=== PATIENT | male | born 1985 | race Hispanic/Latino ===

== ENCOUNTER 2017-12-11 10:24 | Emergency (ER) | payer OTHER, SELFPAY ==
--- NOTE | 2017-12-11 11:18 | RAD ---
FRONTAL RADIOGRAPH CHEST: Date: 12-11-17 Comparison: None. History: Chemical inhalation. FINDINGS: Lungs are clear. Heart and mediastinal contours are unremarkable. IMPRESSION: No acute findings. POS: [facility]
== END 2017-12-11 12:52 | disposition home or self-care (01) ==
LOC: ERS 10:24
DX: T54.3X1A Toxic effect of corrosive alkalis and alkali-like substances, accidental (unintentional), initial encounter (principal); E78.5 Hyperlipidemia, unspecified; F17.210 Nicotine dependence, cigarettes, uncomplicated
CPT/HCPCS: 71045; 94760

== ENCOUNTER 2021-09-01 15:39 | Outpatient (CLI) | payer OTHER | END 2021-09-01 15:40 | disposition home or self-care (01) | LOC: BICRAD 15:39 | PROVIDERS: ATTEND Family Medicine | DX: R05.9 Cough, unspecified (principal); R06.02 Shortness of breath | CPT/HCPCS: 71046 ==

== ENCOUNTER 2021-12-27 23:17 | Inpatient (IN) | payer SELFPAY ==
[2021-12-27 23:47] LABS: Bacteria/HPF None Seen HPF (None Seen); Bilirubin Negative (Negative); Blood, Urine 1+ (Negative); Clarity Clear (Clear); Glucose, Urine (Dipstick) Normal (Negative); Ketone, Urine Negative (Negative); Leukocyte Negative Leu/uL (Negative); Nitrite Negative (Negative); Protein, Urine (Dipstick) 30 mg/dL (Neg-Trace); RBC/HPF 0-3 HPF (0-3); Specific Gravity, Urine 1.012 (1.002-1.036); Squamous Epithelial None Seen HPF (0-3); Urobilinogen Normal mg/dL (Less than 2); WBC/HPF 0-3 HPF (0-3); pH, Urine 6.5 (5.0-9.0)
[2021-12-27 23:53] LABS: Hemoglobin 16.1 g/dL (14.0-18.0); Mean Corpuscular HGB CONC 32.8 g/dL (32.0-36.0); Mean Corpuscular Hemoglobin 30.3 pg (27.0-31.0); Mean Corpuscular Volume 92.4 fL (78.0-98.0); Mean Platelet Volume 8.1 fL (7.4-10.4); Platelet Count 351 thou/uL (130-400); RBC Distribution Width 11.2 % (11.5-14.5); Red Blood Cell (RBC) Count 5.33 mill/uL (4.70-6.10); White Blood Cell (WBC) Count 16.8 thou/uL (4.8-10.8)
[2021-12-27 23:55] LABS: Amphetamine Not Detected (NotDetected); Barbiturates Screen Not Detected (NotDetected); Benzodiazepine Screen Not Detected (NotDetected); Cocaine Metabolite Screen Not Detected (NotDetected); Methadone Not Detected (NotDetected); Methamphetamine Not Detected (NotDetected); Opiate Screen Not Detected (NotDetected); Oxycodone Screen Not Detected (NotDetected); Phencyclidine (PCP) Not Detected (NotDetected); THC/Cannabinoid Screen Not Detected (NotDetected); Tricyclic Screen Not Detected (NotDetected)
[2021-12-28] LABS: ALT (SGPT) 27 U/L (8-55); AST (SGOT) 18 U/L (5-34); Acetaminophen Less than 6.0 mcg/mL (10.0-30.0); Albumin 4.9 g/dL (3.5-5.0); Alcohol Less than 10 mg/dL (Less than 10); Alkaline Phosphatase 68 U/L (40-110); Anion Gap 26 mmol/L (10-20); BUN (Urea Nitrogen) 14 mg/dL (8.9-20.6); Bilirubin, Total 0.4 mg/dL (0.2-1.2); Calc. Creatinine Clearance 0 mL/min (70-130); Calcium 9.3 mg/dL (7.8-10.44); Carbon Dioxide 15 mmol/L (22-29); Chloride 104 mmol/L (98-107); Globulin 2.9 g/dL (2.4-3.5); Glucose 130 mg/dL (70-105); Lipase 33 U/L (8-78); Potassium 3.8 mmol/L (3.5-5.1); Protein, Total 7.8 g/dL (6.0-8.3); Salicylate Less than 8.0 mg/dL (15.0-30.0); Sodium 141 mmol/L (136-145)
[2021-12-28 00:11] LABS: Eosinophils 2 % (0-10); Lymphocytes 40 % (21-51); MDiff Complete? YES; Monocytes 9 % (0-10); Neutrophil 45 % (42-75); Reactive Lymphocytes 3 % (0-10)
[2021-12-28] MEDS ORDERED: Dexamethasone 10 MG/ML VIAL ONE (00:42)
[2021-12-28] MEDS ORDERED: levETIRAcetam in NS 1,500 MG in Premix Bag 1 BAG IVPB SCH ×2 (00:45→09:00)
[2021-12-28] MEDS ORDERED: Ondansetron PF 4 MG/2 ML Vial ONE (01:22)
[2021-12-28] MEDS ORDERED: Ondansetron ODT 4 MG TAB SL PRN (01:45)
[2021-12-28] MEDS ORDERED: Ondansetron PF 4 MG/2 ML Vial IVP PRN (01:45)
[2021-12-28] MEDS ORDERED: Acetaminophen 325 MG TAB PO PRN (01:45)
[2021-12-28 02:13] LABS: SARS-CoV-2 NAA Rapid Test Not Detected (NotDetected)
[2021-12-28] MEDS ORDERED: Lorazepam 2 MG/ML VIAL SLOW IVP PRN (02:18)
[2021-12-28] MEDS ORDERED: Acetaminophen 650 MG Suppository PR PRN (02:18)
[2021-12-28] MEDS: Sodium Chloride 0.9% 1,000 ML IV SCH ×2 (03:15→13:04)
[2021-12-28 03:59] VITALS: BMI 25.5
[2021-12-28 04:17] LABS: Hemoglobin 14.9 g/dL (14.0-18.0); Mean Corpuscular HGB CONC 34.3 g/dL (32.0-36.0); Mean Corpuscular Hemoglobin 31.1 pg (27.0-31.0); Mean Corpuscular Volume 90.6 fL (78.0-98.0); Mean Platelet Volume 7.4 fL (7.4-10.4); Platelet Count 292 thou/uL (130-400); RBC Distribution Width 11.1 % (11.5-14.5); Red Blood Cell (RBC) Count 4.81 mill/uL (4.70-6.10); White Blood Cell (WBC) Count 20.7 thou/uL (4.8-10.8)
[2021-12-28 04:26] LABS: Anion Gap 15 mmol/L (10-20); BUN (Urea Nitrogen) 12 mg/dL (8.9-20.6); Calc. Creatinine Clearance 134 mL/min (70-130); Calcium 8.3 mg/dL (7.8-10.44); Carbon Dioxide 20 mmol/L (22-29); Chloride 106 mmol/L (98-107); Glucose 120 mg/dL (70-105); Magnesium 3.5 mg/dL (1.6-2.6); Potassium 3.8 mmol/L (3.5-5.1); Sodium 137 mmol/L (136-145)
[2021-12-28 04:50] LABS: Band 11 % (5-11); Lymphocytes 7 % (21-51); MDiff Complete? YES; Monocytes 2 % (0-10); Neutrophil 79 % (42-75); Reactive Lymphocytes 1 % (0-10)
[2021-12-28] MEDS: Enoxaparin Sodium 40 MG/0.4 ML SYRINGE SC SCH (08:04)
[2021-12-28] MEDS: Dexamethasone 4 mg/ml Vial SLOW IVP SCH ×4 (08:04→20:24)
[2021-12-28] MEDS ORDERED: Dexamethasone 4 mg/ml Vial SLOW IVP SCH (09:00)
[2021-12-29] MEDS: Dexamethasone 4 mg/ml Vial SLOW IVP SCH (09:19)
[2021-12-29] MEDS: Enoxaparin Sodium 40 MG/0.4 ML SYRINGE SC SCH (09:19)
[2021-12-29 09:25] LABS: Mean Corpuscular HGB CONC 32.3 g/dL (32.0-36.0); Mean Corpuscular Hemoglobin 30.1 pg (27.0-31.0); Mean Corpuscular Volume 92.9 fL (78.0-98.0); Platelet Count 281 thou/uL (130-400); RBC Distribution Width 11.4 % (11.5-14.5); Red Blood Cell (RBC) Count 4.66 mill/uL (4.70-6.10); White Blood Cell (WBC) Count 23.3 thou/uL (4.8-10.8)
[2021-12-29 10:20] LABS: Band 6 % (5-11); Lymphocytes 3 % (21-51); MDiff Complete? YES; Monocytes 4 % (0-10); Neutrophil 87 % (42-75); Platelet Morphology Comment Appears Adequate; RBC Morphology Normal
[2021-12-29 11:28] VITALS: TEMP 98.3
[2021-12-29 13:32] VITALS: BP 113/62
== END 2021-12-29 12:30 | disposition home or self-care (01) | DRG 54 ==
LOC: ERS 23:17 → IMCU/EMU 12-28 01:27
PROVIDERS: ADMIT Student in an Organized Health Care Education/Training Program; ATTEND Internal Medicine
PROC: 4A10X4Z Monitoring of Central Nervous Electrical Activity, External Approach (ICD-10-PCS; principal; 2021-12-28)
DX: D32.0 Benign neoplasm of cerebral meninges (principal); G93.6 Cerebral edema; E78.5 Hyperlipidemia, unspecified; E78.00 Pure hypercholesterolemia, unspecified; R56.9 Unspecified convulsions; F17.210 Nicotine dependence, cigarettes, uncomplicated; Z20.822 Contact with and (suspected) exposure to COVID-19; D72.829 Elevated white blood cell count, unspecified; T38.0X5A Adverse effect of glucocorticoids and synthetic analogues, initial encounter
CPT/HCPCS: 36415; 70450; 70553; 71045; 80048; 80053; 80306; 80307; 81003; 81015; 82140; 83690; 83735; 84443; 84484; 85025; 93005; 95712; 95819; 95957; J1100; J1650; J1953; J2405; J7050; U0002

== ENCOUNTER 2022-02-08 10:45 | Inpatient (IN) | payer OTHER, SELFPAY ==
[2022-02-09 12:28] VITALS: BMI 27.6
[2022-02-13] MEDS ORDERED: Bacitracin Zinc Ointment 30 gm TUBE ONE (06:32)
[2022-02-13] MEDS ORDERED: Lidocaine 0.5%/Epinephrine 1:200,000 50 ml Vial ONE (06:32)
[2022-02-13] MEDS ORDERED: Propofol 1,000 MG/100 ML VIAL IV ONE (06:35)
[2022-02-13] MEDS ORDERED: Fentanyl 250 MCG/5 ML VIAL ONE (06:35)
[2022-02-13] MEDS ORDERED: levETIRAcetam 500 MG/100 ML PREMIX BAG ONE (06:35)
[2022-02-13] MEDS ORDERED: levETIRAcetam in NS 0 ML ONE (06:35)
[2022-02-13] MEDS ORDERED: Rocuronium Bromide 50 MG/5 ML VIAL ONE (06:59)
[2022-02-13] MEDS ORDERED: ceFAZolin (BATCH) 2 GM/100 ML BAG ONE (06:59)
[2022-02-13] MEDS ORDERED: Dexamethasone 20 MG/5 ML VIAL ONE (07:10)
[2022-02-13] MEDS ORDERED: Ondansetron PF 4 MG/2 ML Vial ONE (07:10)
[2022-02-13] MEDS ORDERED: ePHEDrine 50 MG/ML VIAL ONE (07:10)
[2022-02-13] MEDS ORDERED: PROPOFOL 200 MG/20 ML VIAL ONE (07:10)
[2022-02-13] MEDS ORDERED: Rocuronium Bromide 10 MG/ML (10ML VIAL) ONE (07:10)
[2022-02-13] MEDS ORDERED: Lidocaine 1% PF 5 ML VIAL ONE (07:10)
[2022-02-13] MEDS ORDERED: PHENYLEPHRINE-NS 100 MCG/ML 10 ML SYRINGE ONE (07:10)
[2022-02-13] MEDS ORDERED: Vecuronium 10 MG VIAL ONE (07:10)
[2022-02-13] MEDS ORDERED: Thrombin 5000 UNITS/5 ML VIAL ONE ×2 (07:51→07:56)
[2022-02-13] MEDS ORDERED: Fosphenytoin Sodium 500 mg/10 ml Vial ONE ×2 (07:54→08:02)
[2022-02-13] MEDS ORDERED: SUGAMMADEX SODIUM 200 MG/2 ML VIAL ONE (11:11)
[2022-02-13] MEDS ORDERED: diphenhydrAMINE 50 MG/ML VIAL IVP PRN (11:19)
[2022-02-13] MEDS ORDERED: hydrALAZINE 20 MG/ML VIAL SLOW IVP PRN (11:19)
[2022-02-13] MEDS ORDERED: Docusate 100 MG CAP PO PRN (11:19)
[2022-02-13] MEDS ORDERED: Labetalol HCl 100 MG/20 ML VIAL SLOW IVP PRN (11:19)
[2022-02-13] MEDS ORDERED: Ondansetron PF 4 MG/2 ML Vial IVP PRN (11:19)
[2022-02-13] MEDS ORDERED: Morphine 4 MG/ML VIAL SLOW IVP PRN (11:26)
[2022-02-13] MEDS ORDERED: Promethazine HCl 25 MG/ML VIAL IVPB PRN (11:49)
[2022-02-13] MEDS ORDERED: HYDROmorphone 2 MG/ML VIAL SLOW IVP PRN (11:49)
[2022-02-13] MEDS ORDERED: PACU-Morphine 4MG/ML VIAL SLOW IVP PRN (11:49)
[2022-02-13] MEDS ORDERED: Ondansetron HCl/PF 4 MG/2 ML Vial IVP PRN (11:49)
[2022-02-13] MEDS ORDERED: Promethazine HCl 25 MG/ML VIAL IM PRN (11:49)
[2022-02-13] MEDS ORDERED: Morphine Sulfate 2 MG/ML SYRINGE SLOW IVP PRN (11:49)
[2022-02-13] MEDS ORDERED: Fentanyl 100 MCG/2 ML VIAL ONE (12:20)
[2022-02-13] MEDS: Sodium Chloride 0.9% 1,000 ML IV SCH (13:14)
[2022-02-13] MEDS: HYDROcodone/Acetaminophen 7.5/325 mg Tablet PO PRN ×2 (15:11→20:49)
[2022-02-13] MEDS: CEFAZOLIN 2 GM, Admixture Fee 1 EACH in Sodium Chloride 0.9% 100 ML IVPB SCH ×2 (15:48→22:22)
[2022-02-13] MEDS: levETIRAcetam 500 MG TAB PO SCH (20:25)
[2022-02-13] MEDS: Dexamethasone 4 mg/ml Vial SLOW IVP SCH (20:25)
[2022-02-13] MEDS: Famotidine/PF 20 mg/2ml Vial SLOW IVP SCH (20:25)
[2022-02-13] MEDS ORDERED: Dexamethasone 4 MG in Sodium Chloride 0.9% 50 ML IVPB SCH (21:00)
[2022-02-14] MEDS: Sodium Chloride 0.9% 1,000 ML IV SCH ×2 (04:07→12:51)
[2022-02-14] MEDS: HYDROcodone/Acetaminophen 7.5/325 mg Tablet PO PRN ×3 (04:29→12:49)
[2022-02-14] MEDS: levETIRAcetam 500 MG TAB PO SCH (08:45)
[2022-02-14] MEDS: Famotidine/PF 20 mg/2ml Vial SLOW IVP SCH (08:45)
[2022-02-14] MEDS: Dexamethasone 4 mg/ml Vial SLOW IVP SCH (08:45)
[2022-02-14 13:42] VITALS: TEMP 98.1
[2022-02-14 13:56] VITALS: BP 114/75
[2022-02-14] MEDS ORDERED: Rosuvastatin 10 MG TAB PO SCH (21:00)
== END 2022-02-14 15:53 | disposition home or self-care (01) | DRG 25 ==
LOC: SURG A 02-13 05:36 → CCU 02-13 13:08
PROVIDERS: ADMIT Neurological Surgery; ATTEND Neurological Surgery
PROC: 00B70ZZ Excision of Cerebral Hemisphere, Open Approach (ICD-10-PCS; principal; 2022-02-13)
DX: D32.0 Benign neoplasm of cerebral meninges (principal); G93.6 Cerebral edema; Z20.822 Contact with and (suspected) exposure to COVID-19; E78.5 Hyperlipidemia, unspecified; F17.210 Nicotine dependence, cigarettes, uncomplicated; Z79.899 Other long term (current) drug therapy
CPT/HCPCS: 36416; 74230; 88307; 88341; 88342; 88360; C1713; J0690; J1100; J1165; J1953; J2001; J2405; J2704; J3010; J3490; J7050; Q2009; S0028

== ENCOUNTER 2025-06-12 08:45 | Outpatient (CLI) | payer OTHER | END 2025-06-12 08:46 | disposition home or self-care (01) | LOC: ULT 08:45 | PROVIDERS: ATTEND Nurse Practitioner Family | DX: R10.13 Epigastric pain (principal); K82.9 Disease of gallbladder, unspecified; K76.0 Fatty (change of) liver, not elsewhere classified | CPT/HCPCS: 76700 ==

== ENCOUNTER 2025-07-14 16:09 | Outpatient (CLI) | payer SELFPAY ==
[2025-07-14 17:01] LABS: #Basophils 0.04 10x3/uL (0.0-0.2); #Eosinophils 0.09 10x3/uL (0.0-0.7); #Monocytes 0.55 10x3/uL (0.11-0.59); #Neutrophils 6.70 10x3/uL (1.40-6.50); %Basophils 0.4 % (0.0-1.0); %Eosinophils 0.8 % (0.0-10.0); %Lymphocytes 29.9 % (21.0-51.0); %Monocytes 5.2 % (0.0-10.0); %Neutrophils 63.3 % (42.0-75.0); Hematocrit 44.8 % (42.0-52.0); Hemoglobin 15.2 g/dL (14.0-18.0); Mean Corpuscular Hemoglobin 29.3 pg (27.0-31.0); Mean Corpuscular Volume 86.3 fL (78.0-98.0); Platelet Count 297 10x3/uL (130-400); Red Blood Cell (RBC) Count 5.19 mill/uL (4.70-6.10); White Blood Cell (WBC) Count 10.59 10x3/uL (4.8-10.8)
[2025-07-14 17:18] LABS: ALT (SGPT) 29 U/L (Less than 45); AST (SGOT) 21 U/L (11-34); Albumin 4.5 g/dL (3.1-4.5); Alkaline Phosphatase 72 U/L (40-110); Anion Gap 12 mmol/L (10-20); BUN (Urea Nitrogen) 10 mg/dL (8.9-20.6); Bilirubin, Direct 0.1 mg/dL (0.1-0.3); Bilirubin, Total 0.4 mg/dL (0.3-1.2); Calc. Creatinine Clearance 0 mL/min (70-130); Calcium 9.4 mg/dL (7.8-10.44); Carbon Dioxide 28 mmol/L (22-29); Chloride 104 mmol/L (98-107); Glucose 100 mg/dL (70-105); Potassium 4.1 mmol/L (3.5-5.1); Sodium 140 mmol/L (136-145)
== END 2025-07-14 16:10 | disposition home or self-care (01) ==
LOC: LABBT 16:09
PROVIDERS: ATTEND Surgery
DX: Z01.812 Encounter for preprocedural laboratory examination (principal); K80.20 Calculus of gallbladder without cholecystitis without obstruction
CPT/HCPCS: 80048; 80076; 85025

== ENCOUNTER 2025-07-21 05:57 | Day surgery (SDC) | payer SELFPAY ==
[2025-07-14 16:35] VITALS: BMI 28.0
[2025-07-21] MEDS ORDERED: CEFAZOLIN 2 GM VIAL ONE (06:18)
[2025-07-21] MEDS ORDERED: Bupivacaine 0.25% HCL 30 ML VIAL ONE (06:37)
[2025-07-21] MEDS ORDERED: PROPOFOL 40 ML ONE (07:00)
[2025-07-21] MEDS ORDERED: fentaNYL PF 100 MCG/2 ML SYRINGE ONE ×3 (07:00→08:47)
[2025-07-21] MEDS ORDERED: Lidocaine 1% PF 5 ML VIAL ONE (07:02)
[2025-07-21] MEDS ORDERED: Rocuronium Bromide 10 MG/ML (10ML VIAL) ONE (07:02)
[2025-07-21] MEDS ORDERED: Glycopyrrolate 0.2 MG/ML 5 ML SYRINGE ONE (08:05)
[2025-07-21] MEDS ORDERED: NEOSTIGMINE 3 MG/3 ML SYRINGE ONE (08:05)
[2025-07-21] MEDS ORDERED: Ondansetron PF 4 MG/2 ML Vial ONE (08:10)
[2025-07-21] MEDS ORDERED: HYDROcodone/Acetaminophen 5/325 mg Tablet ONE (10:00)
== END 2025-07-21 10:38 | disposition home or self-care (01) ==
LOC: SDC 05:57
PROVIDERS: ATTEND Surgery
PROC: 0FT44ZZ Resection of Gallbladder, Percutaneous Endoscopic Approach (ICD-10-PCS; principal; 2025-07-21)
DX: K81.1 Chronic cholecystitis (principal); E78.00 Pure hypercholesterolemia, unspecified; Z79.899 Other long term (current) drug therapy; Z87.891 Personal history of nicotine dependence
CPT/HCPCS: 47562; C9776; 88304; C1889; J0169; J0665; J2405; J2704; S2900